=== PATIENT | male | born 1950 | race Caucasian/White ===

== ENCOUNTER 2024-01-07 10:33 | Inpatient (IN) | payer BC, MEDICAID, OTHER ==
[~2024-01-07] VITALS: Ht 167.6 cm; Wt 62.6 kg
[2024-01-07] MEDS: IV NS 0.9% 1,000 ML BAG IV ONE (11:05)
[2024-01-07 12:09] LABS: APPEARANCE,URINE TURBID (CLEAR); BILIRUBIN,URINE NEGATIVE (NEGATIVE); BLOOD, URINE 3+ Ery/uL (NEGATIVE); COLOR,URINE DARK YELLOW (YELLOW); KETONES,URINE 1+ mg/dL (NEGATIVE); LEUKOCYTE ESTERASE ,URINE 2+ (NEGATIVE); NITRITE, URINE NEGATIVE (NEGATIVE); PROTEIN,URINE 2+ mg/dl (NEGATIVE); UGLUCOSE TRACE mg/dL (NEGATIVE); UROBILINOGEN,URINE 0.2 EU/dL (0.2)
[2024-01-07 12:38] LABS: ADD URINE CULTURE YES; BACTERIA,URINE 1+ /HPF (None Seen)
[2024-01-07 12:39] LABS: SQUAMOUS EPITHELIAL CELL,UR None Seen /HPF (None Seen)
[2024-01-07 12:40] LABS: MUCUS,URINE Rare /LPF (None Seen)
[2024-01-07 12:43] LABS: YEAST,URINE Many /HPF (None Seen)
[2024-01-07 12:47] LABS: BASOPHILS % (AUTO) 0.4 % (0.0-2.0); EOSINOPHILS % (AUTO) 0.7 % (0.0-6.0); HEMATOCRIT 21 % (39-51); HEMOGLOBIN 7.1 g/dL (13.5-17.5); LYMPHOCYTES # (AUTO) 0.2 K/uL (0.8-4.8); LYMPHOCYTES % (AUTO) 5.4 % (20.0-44.0); MEAN CORPUSCULAR HEMOGLOBIN 32 PG (26.0-33.0); MEAN CORPUSCULAR HGB CONC 34 g/dl (31.0-36.0); MEAN CORPUSCULAR VOLUME 96 fL (80-96); MONOCYTES # (AUTO) 0.6 K/uL (0.1-1.30); MONOCYTES % (AUTO) 12.8 % (2.0-12.0); NEUTROPHILS # (AUTO) 3.5 K/uL (1.8-8.9); NEUTROPHILS % (AUTO) 80.7 % (43.0-81.0); PLATELET COUNT (AUTO) 253 K/uL (150-450); RED BLOOD CELL COUNT(AUTO) 2.18 MIL/uL (4.5-6.0); RED CELL DISTRIBUTION WIDTH 24.5 % (11.5-15.0); WHITE BLOOD COUNT (AUTO) 4.3 K/uL (4.3-11.0)
[2024-01-07 12:58] LABS: CALCIUM, SERUM 6.9 mg/dL (8.5-10.1); CARBON DIOXIDE 24 mmol/L (21-32); CHLORIDE 107 mmol/L (98-107); GLUCOSE 205 mg/dL (74-106); POTASSIUM 4.7 mmol/L (3.5-5.1); SODIUM SERUM 134 mmol/L (136-145); UREA NITROGEN, BLOOD 17 mg/dL (7-18)
[2024-01-07 13:03] LABS: ALANINE AMINOTRANSFERASE 17 U/L (12-78); ALKALINE PHOSPHATASE 56 U/L (46-116); ASPARTATE AMINOTRANSFERASE 20 U/L (15-37); BILIRUBIN,DIRECT 0.2 mg/dL (0.0-0.2); BILIRUBIN,TOTAL 0.4 mg/dL (0.2-1.0); TOTAL PROTEIN, SERUM 4.1 g/dL (6.4-8.2)
[2024-01-07 13:04] LABS: ALBUMIN 1.3 g/dL (3.4-5.0)
[2024-01-07 13:05] LABS: INR 1.4 (0.91-1.10); PARTIAL THROMBOPLASTIN TIME 29.3 SEC (24.3-34.3); PROTHROMBIN TIME 14.2 SECS (9.2-11.1)
[2024-01-07 13:06] LABS: LACTIC ACID 1.1 mmol/L (0.4-2.0)
[2024-01-07] MEDS ORDERED: CEFTRIAXONE 1GM BAG (ER ONLY) 50 ML IV ONE (13:34)
[2024-01-07] MEDS: CEFTRIAXONE 1GM BAG (ER ONLY) 1 GM/50 ML PIGGYBACK IV ONE (13:35)
[2024-01-07] MEDS ORDERED: MAG HYDROX/AL HYDROX/SIMETH 30 ML UDC PO PRN (14:00)
[2024-01-07] MEDS ORDERED: ONDANSETRON HCL/PF 4 MG/2 ML VIAL IVP PRN (14:00)
[2024-01-07] MEDS ORDERED: ZOLPIDEM TARTRATE 5 MG TABLET PO PRN (14:00)
[2024-01-07] MEDS ORDERED: DEXTROSE 50%-WATER 50 ML DISP.SYRIN IV PRN (14:00)
[2024-01-07] MEDS ORDERED: ASCO500T10 PO (16:16)
[2024-01-07] MEDS ORDERED: GEL100GE MC (16:16)
[2024-01-07] MEDS ORDERED: CYAN500T9 PO (16:16)
[2024-01-07] MEDS ORDERED: MELA5TAB PO (16:16)
[2024-01-07] MEDS ORDERED: POTA-88 PO (16:16)
[2024-01-07] MEDS ORDERED: TRUEPLUS GLUCOSE PO (16:16)
[2024-01-07] MEDS ORDERED: FAMO20TA8 PO (16:16)
[2024-01-07] MEDS ORDERED: SODI1TAB66 PO (16:16)
[2024-01-07] MEDS ORDERED: CAPE500T15 PO (16:16)
[2024-01-07] MEDS ORDERED: POLY17PO4 PO (16:16)
[2024-01-07] MEDS ORDERED: INSU100I47 SQ (16:16)
[2024-01-07] MEDS ORDERED: BISA10SU11 RC (16:16)
[2024-01-07] MEDS ORDERED: SENN-261 PO (16:16)
[2024-01-07] MEDS ORDERED: ACET325T53 PO (16:16)
[2024-01-07] MEDS ORDERED: TAMS-12 PO (16:16)
[2024-01-07] MEDS ORDERED: ACET-637 PO ×2 (16:16)
[2024-01-07] MEDS ORDERED: MENT71OI TP (16:16)
[2024-01-07] MEDS ORDERED: ENOX40DI SQ (16:16)
[2024-01-07] MEDS ORDERED: ATOR40TA PO (16:16)
[2024-01-07] MEDS ORDERED: ONDA8TAB65 PO (16:16)
[2024-01-07] MEDS ORDERED: CRAN425C6 PO (16:16)
[2024-01-07] MEDS ORDERED: DOCU100T2 PO (16:16)
[2024-01-07] MEDS ORDERED: FERR325T23 PO (16:16)
[2024-01-07] MEDS ORDERED: GLUC1KIT IM (16:16)
[2024-01-07] MEDS ORDERED: TURKEY TAIL MUSHROOM PO (16:16)
[2024-01-07] MEDS: IV NS 0.9% 1,000 ML IV PRN (16:49)
[2024-01-07] MEDS: BLOOD SUGAR DIAGNOSTIC 1 EACH STRIP IN SCH (17:32)
[2024-01-07] MEDS: INSULIN REGULAR, HUMAN 100 UNIT/ML 3 ML VIAL SQ PRN (18:18)
[2024-01-07 18:22] LABS: THYROID STIMULATING HORMONE 0.81 uIU/mL (0.358-3.74)
[2024-01-07 18:50] LABS: EOSINOPHILS % (MANUAL) 1 % (0-4); LYMPHOCYTES % (MANUAL) 7 % (16-48); MONOCYTES % (MANUAL) 7 % (0-11.0); NEUTROPHILS % (MANUAL) 85 (42-76)
[2024-01-07 18:51] LABS: ANISOCYTOSIS 1+; OVALOCYTES 1+; PLATELET ESTIMATE ADEQU
[2024-01-07] MEDS: ACETAMINOPHEN 325 MG TABLET PO PRN (19:32)
[2024-01-07 20:10] VITALS: BP 93/53; TEMP 99
[2024-01-07 20:31] VITALS: BP 85/50; TEMP 98.1
[2024-01-07 20:45] VITALS: BP 90/60; TEMP 98.6
[2024-01-07 21:15] VITALS: BP 90/60; TEMP 97
[2024-01-07 21:38] VITALS: BP 90/60; TEMP 98.4
[2024-01-07] MEDS: PANTOPRAZOLE 40 MG VIAL IV SCH (22:03)
[2024-01-07 22:07] VITALS: BP 91/54; TEMP 98.4
[2024-01-07] MEDS: IV NS 0.9% 500 ML IV ONE (22:32)
[2024-01-08 02:29] VITALS: O2SAT 96
[2024-01-08 07:35] LABS: BASOPHILS % (AUTO) 0.3 % (0.0-2.0); EOSINOPHILS # (AUTO) 0.1 K/uL (0.0-0.7); EOSINOPHILS % (AUTO) 1.1 % (0.0-6.0); HEMATOCRIT 24 % (39-51); LYMPHOCYTES # (AUTO) 0.3 K/uL (0.8-4.8); LYMPHOCYTES % (AUTO) 4.9 % (20.0-44.0); MEAN CORPUSCULAR HEMOGLOBIN 32 PG (26.0-33.0); MEAN CORPUSCULAR HGB CONC 34 g/dl (31.0-36.0); MEAN CORPUSCULAR VOLUME 93 fL (80-96); MONOCYTES # (AUTO) 0.7 K/uL (0.1-1.30); MONOCYTES % (AUTO) 13.8 % (2.0-12.0); NEUTROPHILS # (AUTO) 4.3 K/uL (1.8-8.9); NEUTROPHILS % (AUTO) 79.9 % (43.0-81.0); PLATELET COUNT (AUTO) 250 K/uL (150-450); RED BLOOD CELL COUNT(AUTO) 2.54 MIL/uL (4.5-6.0); RED CELL DISTRIBUTION WIDTH 22.4 % (11.5-15.0); WHITE BLOOD COUNT (AUTO) 5.3 K/uL (4.3-11.0)
[2024-01-08 08:00] VITALS: BP_SYST 116; BP_SYST 128; BP_DIAS 66; BP_DIAS 69; TEMP 98.1; TEMP 98.2; O2SAT 100; O2SAT 99
[2024-01-08 08:20] VITALS: O2SAT 98
[2024-01-08 08:25] LABS: THYROID STIMULATING HORMONE 0.977 uIU/mL (0.358-3.74)
[2024-01-08 08:50] LABS: BILIRUBIN,DIRECT 0.2 mg/dL (0.0-0.2); BILIRUBIN,TOTAL 0.5 mg/dL (0.2-1.0); CALCIUM, SERUM 6.9 mg/dL (8.5-10.1); CREATININE 0.8 mg/dL (0.6-1.3); PHOSPHORUS 2.1 mg/dL (2.5-4.9); POTASSIUM 4.2 mmol/L (3.5-5.1); TOTAL PROTEIN, SERUM 3.7 g/dL (6.4-8.2)
[2024-01-08 08:53] LABS: MAGNESIUM 1.2 mg/dL (1.8-2.4)
[2024-01-08] MEDS ORDERED: CAPECITABINE 500 MG TABLET PO SCH (09:00)
[2024-01-08] MEDS: ENOXAPARIN SODIUM 40 MG/0.4 ML DISP.SYRIN SQ SCH (09:00)
[2024-01-08] MEDS ORDERED: ONDANSETRON 4 MG TAB.RAPDIS PO PRN (09:00)
[2024-01-08] MEDS: HYDROGEL DRESSING 90 GM TUBE TP SCH (10:52)
[2024-01-08] MEDS ORDERED: IV NS 0.9% 250 ML IV ONE (11:58)
[2024-01-08] MEDS ORDERED: IOHEXOL-300 100 ML VIAL IV ONE (11:58)
[2024-01-08] MEDS ORDERED: CT SWABBABLE VALVE TRANS SET 1 EA INFUS.SET MC ONE (11:58)
[2024-01-08] MEDS: MAGNESIUM OXIDE 400 MG TABLET PO SCH (14:02)
[2024-01-08] MEDS: CEFTRIAXONE 1 G in IV D5W 50 ML IV SCH (14:05)
[2024-01-08] MEDS: IV NS 0.9% 1,000 ML IV PRN (14:18)
[2024-01-08 15:15] LABS: HEMOGLOBIN 8.5 g/dL (13.5-17.5)
[2024-01-08 16:00] VITALS: BP 128/60; TEMP 98.1; O2SAT 99
[2024-01-08] MEDS: K PHOS NEUTRAL 250 MG TABLET PO ONE (16:13)
[2024-01-08 16:22] LABS: LYMPHOCYTES % (MANUAL) 2 % (16-48); MONOCYTES % (MANUAL) 8 % (0-11.0); NEUTROPHILS % (MANUAL) 90 (42-76); PLATELET ESTIMATE ADEQUATE
[2024-01-08 16:23] LABS: ANISOCYTOSIS 2+
[2024-01-08 20:00] VITALS: BP 128/69; TEMP 98; O2SAT 100
[2024-01-08 21:14] LABS: OCCULT BLOOD STOOL POSITIVE (NEGATIVE)
[2024-01-08] MEDS: TAMSULOSIN 0.4 MG CAP.SR.24H PO SCH (22:30)
[2024-01-08] MEDS: Z GUARD REMEDY 4 OZ OINT TP PRN (22:30)
[2024-01-09] VITALS (7 sets, daily range): BP systolic 106–132; BP diastolic 64–74; TEMP 97.6–98.6; O2SAT 99–100
[2024-01-09] MEDS: HYDROGEL DRESSING 90 GM TUBE TP PRN (06:55)
[2024-01-09 07:29] LABS: BASOPHILS % (AUTO) 0.3 % (0.0-2.0); EOSINOPHILS % (AUTO) 0.5 % (0.0-6.0); HEMATOCRIT 23 % (39-51); HEMOGLOBIN 8.1 g/dL (13.5-17.5); LYMPHOCYTES # (AUTO) 0.3 K/uL (0.8-4.8); LYMPHOCYTES % (AUTO) 5.4 % (20.0-44.0); MEAN CORPUSCULAR HEMOGLOBIN 32 PG (26.0-33.0); MEAN CORPUSCULAR HGB CONC 35 g/dl (31.0-36.0); MEAN CORPUSCULAR VOLUME 93 fL (80-96); MONOCYTES # (AUTO) 0.7 K/uL (0.1-1.30); MONOCYTES % (AUTO) 13.9 % (2.0-12.0); NEUTROPHILS # (AUTO) 4.1 K/uL (1.8-8.9); NEUTROPHILS % (AUTO) 79.9 % (43.0-81.0); PLATELET COUNT (AUTO) 225 K/uL (150-450); RED BLOOD CELL COUNT(AUTO) 2.49 MIL/uL (4.5-6.0); RED CELL DISTRIBUTION WIDTH 24.3 % (11.5-15.0); WHITE BLOOD COUNT (AUTO) 5.1 K/uL (4.3-11.0)
[2024-01-09 08:10] LABS: FOLIC ACID 10.1 ng/mL (>3.0)
[2024-01-09 08:51] LABS: CALCIUM, SERUM 6.4 mg/dL (8.5-10.1); CREATININE 0.9 mg/dL (0.6-1.3); POTASSIUM 3.6 mmol/L (3.5-5.1)
[2024-01-09] MEDS: PANTOPRAZOLE 40 MG TABLET.DR PO SCH (08:55)
[2024-01-09 09:43] LABS: PHOSPHORUS 2.2 mg/dL (2.5-4.9)
[2024-01-09 09:52] LABS: MAGNESIUM 1.1 mg/dL (1.8-2.4)
[2024-01-09] MEDS: Magnesium 1GM/D5W 100ML PREMIX 100 ML IV SCH (11:15)
[2024-01-09 11:29] LABS: ANISOCYTOSIS 1+; BAND % (MANUAL) 4 % (0.0-5.0); LYMPHOCYTES % (MANUAL) 5 % (16-48); MONOCYTES % (MANUAL) 10 % (0-11.0); NEUTROPHILS % (MANUAL) 81 (42-76); PLATELET ESTIMATE ADEQUATE
[2024-01-09 11:30] LABS: OVALOCYTES 1+
[2024-01-09 11:31] LABS: TEAR DROP CELLS 1+
[2024-01-09] MEDS: SOD FERRIC GLUC 125 MG in IV NS 0.9% 100 ML IV SCH (14:40)
[2024-01-09 15:32] LABS: HEMOGLOBIN 7.4 g/dL (13.5-17.5)
[2024-01-10 02:11] VITALS: O2SAT 99
[2024-01-10 07:34] LABS: CALCIUM, SERUM 6.2 mg/dL (8.5-10.1); CARBON DIOXIDE 26 mmol/L (21-32); CHLORIDE 104 mmol/L (98-107); CREATININE 0.7 mg/dL (0.6-1.3); GLUCOSE 117 mg/dL (74-106); POTASSIUM 2.9 mmol/L (3.5-5.1); SODIUM SERUM 136 mmol/L (136-145); UREA NITROGEN, BLOOD 4 mg/dL (7-18)
[2024-01-10 07:50] LABS: BASOPHILS % (AUTO) 0.3 % (0.0-2.0); EOSINOPHILS # (AUTO) 0.1 K/uL (0.0-0.7); HEMATOCRIT 23 % (39-51); LYMPHOCYTES # (AUTO) 0.3 K/uL (0.8-4.8); LYMPHOCYTES % (AUTO) 4.7 % (20.0-44.0); MEAN CORPUSCULAR HEMOGLOBIN 32 PG (26.0-33.0); MEAN CORPUSCULAR HGB CONC 34 g/dl (31.0-36.0); MEAN CORPUSCULAR VOLUME 93 fL (80-96); MONOCYTES # (AUTO) 0.6 K/uL (0.1-1.30); MONOCYTES % (AUTO) 10.1 % (2.0-12.0); NEUTROPHILS # (AUTO) 4.7 K/uL (1.8-8.9); NEUTROPHILS % (AUTO) 83.9 % (43.0-81.0); PLATELET COUNT (AUTO) 195 K/uL (150-450); RED BLOOD CELL COUNT(AUTO) 2.53 MIL/uL (4.5-6.0); RED CELL DISTRIBUTION WIDTH 24.3 % (11.5-15.0); WHITE BLOOD COUNT (AUTO) 5.6 K/uL (4.3-11.0)
[2024-01-10 08:00] VITALS: BP 127/71; TEMP 97.8; O2SAT 99
[2024-01-10 08:31] VITALS: O2SAT 99
[2024-01-10] MEDS: POTASSIUM CHLORIDE 20 MEQ TAB.PRT.SR PO ONE (09:33)
[2024-01-10 10:42] LABS: BAND % (MANUAL) 1 % (0.0-5.0); EOSINOPHILS % (MANUAL) 1 % (0-4); LYMPHOCYTES % (MANUAL) 3 % (16-48); MONOCYTES % (MANUAL) 11 % (0-11.0); NEUTROPHILS % (MANUAL) 84 (42-76); PLATELET ESTIMATE ADEQUATE
[2024-01-10 10:43] LABS: ANISOCYTOSIS 1+
[2024-01-10] MEDS ORDERED: POTASSIUM CHLORIDE 10 MEQ TABLET.SA PO STA (11:11)
[2024-01-10 16:00] VITALS: BP 111/68; TEMP 97.3; O2SAT 100
[2024-01-10 17:10] VITALS: BP 154/82
[2024-01-10] MEDS: FLUCONAZOLE (100 MG) 100 MG TABLET PO SCH (17:32)
[2024-01-10 20:00] VITALS: BP 118/69; TEMP 97.5; O2SAT 100
[2024-01-11 01:04] VITALS: O2SAT 99
[2024-01-11] MEDS: MAGNESIUM HYDROXIDE 30 ML UDC PO PRN (05:34)
[2024-01-11 07:29] LABS: BASOPHILS % (AUTO) 0.1 % (0.0-2.0); EOSINOPHILS # (AUTO) 0.1 K/uL (0.0-0.7); EOSINOPHILS % (AUTO) 0.8 % (0.0-6.0); HEMATOCRIT 23 % (39-51); HEMOGLOBIN 8.1 g/dL (13.5-17.5); LYMPHOCYTES # (AUTO) 0.5 K/uL (0.8-4.8); LYMPHOCYTES % (AUTO) 6.3 % (20.0-44.0); MEAN CORPUSCULAR HEMOGLOBIN 32 PG (26.0-33.0); MEAN CORPUSCULAR HGB CONC 35 g/dl (31.0-36.0); MEAN CORPUSCULAR VOLUME 92 fL (80-96); MONOCYTES # (AUTO) 0.7 K/uL (0.1-1.30); MONOCYTES % (AUTO) 9.2 % (2.0-12.0); NEUTROPHILS % (AUTO) 83.6 % (43.0-81.0); PLATELET COUNT (AUTO) 190 K/uL (150-450); RED BLOOD CELL COUNT(AUTO) 2.53 MIL/uL (4.5-6.0); RED CELL DISTRIBUTION WIDTH 24.6 % (11.5-15.0); WHITE BLOOD COUNT (AUTO) 7.2 K/uL (4.3-11.0)
[2024-01-11 08:03] VITALS: O2SAT 96
[2024-01-11 08:43] LABS: CALCIUM, SERUM 6.5 mg/dL (8.5-10.1); CARBON DIOXIDE 25 mmol/L (21-32); CHLORIDE 105 mmol/L (98-107); CREATININE 0.7 mg/dL (0.6-1.3); GLUCOSE 112 mg/dL (74-106); MAGNESIUM 1.5 mg/dL (1.8-2.4); POTASSIUM 3.3 mmol/L (3.5-5.1); SODIUM SERUM 136 mmol/L (136-145); UREA NITROGEN, BLOOD 3 mg/dL (7-18)
[2024-01-11] MEDS ORDERED: FLUCONAZOLE (100 MG) 100 MG TABLET PO SCH (09:00)
[2024-01-11] MEDS ORDERED: Magnesium 1GM/D5W 100ML PREMIX 100 ML IV SCH (11:30)
[2024-01-11 11:47] LABS: ANISOCYTOSIS 1+; BAND % (MANUAL) 2 % (0.0-5.0); LYMPHOCYTES % (MANUAL) 4 % (16-48); MONOCYTES % (MANUAL) 4 % (0-11.0); NEUTROPHILS % (MANUAL) 90 (42-76); PLATELET ESTIMATE ADEQUATE
[2024-01-11] MEDS: POTASSIUM CHLORIDE 20 MEQ TAB.PRT.SR PO SCH (11:47)
[2024-01-11] MEDS: Magnesium 1GM/D5W 100ML PREMIX 100 ML IV SCH (11:47)
[2024-01-11 11:48] LABS: OVALOCYTES 1+
[2024-01-11] MEDS: ENSURE CLEAR 237 ML LIQUID (MIX BERRY) PO SCH (14:34)
[2024-01-11] MEDS: K PHOS NEUTRAL 250 MG TABLET PO ONE (15:49)
[2024-01-11 16:00] VITALS: BP 122/66; TEMP 97.9; O2SAT 100
[2024-01-11 20:00] VITALS: BP 125/81; TEMP 97.7; O2SAT 100
[2024-01-12 07:45] LABS: BASOPHILS % (AUTO) 0.2 % (0.0-2.0); EOSINOPHILS # (AUTO) 0.1 K/uL (0.0-0.7); EOSINOPHILS % (AUTO) 0.9 % (0.0-6.0); HEMATOCRIT 23 % (39-51); HEMOGLOBIN 7.9 g/dL (13.5-17.5); LYMPHOCYTES # (AUTO) 0.4 K/uL (0.8-4.8); MEAN CORPUSCULAR HEMOGLOBIN 32 PG (26.0-33.0); MEAN CORPUSCULAR HGB CONC 35 g/dl (31.0-36.0); MEAN CORPUSCULAR VOLUME 92 fL (80-96); MONOCYTES # (AUTO) 0.7 K/uL (0.1-1.30); MONOCYTES % (AUTO) 10.2 % (2.0-12.0); NEUTROPHILS # (AUTO) 5.2 K/uL (1.8-8.9); NEUTROPHILS % (AUTO) 81.7 % (43.0-81.0); PLATELET COUNT (AUTO) 187 K/uL (150-450); RED BLOOD CELL COUNT(AUTO) 2.49 MIL/uL (4.5-6.0); RED CELL DISTRIBUTION WIDTH 24.7 % (11.5-15.0); WHITE BLOOD COUNT (AUTO) 6.4 K/uL (4.3-11.0)
[2024-01-12 08:00] VITALS: BP 143/79; TEMP 97.7; O2SAT 99
[2024-01-12 08:27] LABS: MAGNESIUM 1.7 mg/dL (1.8-2.4); PHOSPHORUS 2.3 mg/dL (2.5-4.9)
[2024-01-12 09:27] LABS: CALCIUM, SERUM 6.5 mg/dL (8.5-10.1); CREATININE 0.6 mg/dL (0.6-1.3); POTASSIUM 3.2 mmol/L (3.5-5.1)
[2024-01-12] MEDS: Magnesium 1GM/D5W 100ML PREMIX 100 ML IV SCH (10:55)
[2024-01-12 11:18] VITALS: O2SAT 97
[2024-01-12 12:01] LABS: LYMPHOCYTES % (MANUAL) 8 % (16-48); MONOCYTES % (MANUAL) 11 % (0-11.0); NEUTROPHILS % (MANUAL) 81 (42-76); PLATELET ESTIMATE ADEQUATE
[2024-01-12 12:02] LABS: ANISOCYTOSIS 1+; OVALOCYTES 1+
[2024-01-12 16:00] VITALS: BP 120/72; TEMP 97.7; O2SAT 100
[2024-01-12] MEDS: K PHOS NEUTRAL 250 MG TABLET PO ONE (16:11)
[2024-01-12 20:00] VITALS: BP 113/66; TEMP 97.7; O2SAT 98
[2024-01-12 20:12] VITALS: O2SAT 98
[2024-01-13 07:58] LABS: CALCIUM, SERUM 7.2 mg/dL (8.5-10.1); CREATININE 0.7 mg/dL (0.6-1.3)
[2024-01-13 08:00] VITALS: BP 125/73; TEMP 97.7; O2SAT 99
[2024-01-13 08:04] LABS: HEMOGLOBIN 7.6 g/dL (13.5-17.5); POTASSIUM 2.7 mmol/L (3.5-5.1)
[2024-01-13 08:45] LABS: MAGNESIUM 1.6 mg/dL (1.8-2.4); PHOSPHORUS 2.6 mg/dL (2.5-4.9)
[2024-01-13] MEDS: MAGNESIUM OXIDE 400 MG TABLET PO ONE (11:18)
[2024-01-13] MEDS: POTASSIUM CHLORIDE 20 MEQ TAB.PRT.SR PO SCH (11:28)
[2024-01-14 16:09] LABS: *IFE A/G RATIO 0.9 (0.7-1.7); *IFE ALBUMIN 1.6 g/dL (2.9-4.4); *IFE ALPHA-2-GLOBULIN 0.6 g/dL (0.4-1.0); *IFE BETA GLOBULIN 0.6 g/dL (0.7-1.3); *IFE GAMMA GLOBULIN 0.5 g/dL (0.4-1.8); *IFE M-SPIKE Not Observed g/dL (Not Observed); *IFEALPHA-1-GLOBULIN 0.3 g/dL (0.0-0.4); *SPE PROTEIN TOTAL 3.5 g/dL (6.0-8.5); IMMUNOGLOBULIN A, SERUM 333 mg/dL (61-437); IMMUNOGLOBULIN G, SERUM 486 mg/dL (603-1613); IMMUNOGLOBULIN M, SERUM 30 mg/dL (15-143)
== END 2024-01-13 16:26 | DRG 698 ==
LOC: ER 10:51 → TELE 14:47 → MED 01-09 10:35
PROVIDERS: ADMIT Nurse Practitioner Acute Care; ATTEND Student in an Organized Health Care Education/Training Program
PROC: 30233N1 Transfusion of Nonautologous Red Blood Cells into Peripheral Vein, Percutaneous Approach (ICD-10-PCS; principal; 2024-01-07)
DX: T83.511A Infection and inflammatory reaction due to indwelling urethral catheter, initial encounter (principal); L89.153 Pressure ulcer of sacral region, stage 3; C19 Malignant neoplasm of rectosigmoid junction; K92.2 Gastrointestinal hemorrhage, unspecified; B37.49 Other urogenital candidiasis; D68.9 Coagulation defect, unspecified; N13.6 Pyonephrosis; Y84.6 Urinary catheterization as the cause of abnormal reaction of the patient, or of later complication, without mention of misadventure at the time of the procedure; Y92.129 Unspecified place in nursing home as the place of occurrence of the external cause; E86.0 Dehydration; E11.9 Type 2 diabetes mellitus without complications; R55 Syncope and collapse; K76.0 Fatty (change of) liver, not elsewhere classified; R33.8 Other retention of urine; W19.XXXA Unspecified fall, initial encounter; K29.50 Unspecified chronic gastritis without bleeding; Z79.60 Long term (current) use of unspecified immunomodulators and immunosuppressants; R19.5 Other fecal abnormalities; E88.09 Other disorders of plasma-protein metabolism, not elsewhere classified; Z90.49 Acquired absence of other specified parts of digestive tract; N40.1 Benign prostatic hyperplasia with lower urinary tract symptoms; R33.9 Retention of urine, unspecified; D50.0 Iron deficiency anemia secondary to blood loss (chronic)
CPT/HCPCS: 36415; 70450-TC; 71045-TC; 71260-TC; 80048-TC; 80053-TC; 80061-TC; 80076-TC; 81001; 82272-TC; 82378; 82607-TC; 82728-TC; 82784; 82962-TC; 83540-TC; 83605-TC; 83735-TC; 84100-TC; 84155; 84165; 84439-TC; 84443-TC; 84484-TC; 85025-TC; 85027-TC; 85730-TC; 86334; 86850-TC; 87040-TC; 87086-TC; 93307-TC; 94760-TC; 94761-TC; 94799-TC; 97110-TC; 97112-TC; 97530-TC; 97535-TC; A4217; A4223; A6248; A6403; C9113; G0378; J0696; J1815; J2916; J3475; J7030; J7050; J7060; P9016; Q9967